=== PATIENT | male | born 1985 | race Caucasian/White ===

== ENCOUNTER 2019-07-09 20:14 | Emergency (ER) | payer SELFPAY ==
[~2019-07-09] VITALS: Ht 172.7 cm; Wt 68.0 kg
[2019-07-09 20:16] VITALS: BP 146/102
[2019-07-09] MEDS ORDERED: TDAP [DIPH/PERTUSSIS/TET] 0.5 ML VIAL IM ONE ×2 (20:56→21:00)
== END 2019-07-09 21:03 | disposition home or self-care (01) ==
LOC: ER 20:17
DX: S61.011A Laceration without foreign body of right thumb without damage to nail, initial encounter (principal); S61.210A Laceration without foreign body of right index finger without damage to nail, initial encounter; W26.8XXA Contact with other sharp object(s), not elsewhere classified, initial encounter; Y93.89 Activity, other specified; Y92.89 Other specified places as the place of occurrence of the external cause; Y99.8 Other external cause status
CPT/HCPCS: 90715

== ENCOUNTER 2019-07-10 08:52 | Emergency (ER) | payer MEDICAID ==
[~2019-07-10] VITALS: Ht 172.7 cm; Wt 68.0 kg
[2019-07-10 08:59] VITALS: BP 139/77
--- NOTE | 2019-07-10 09:50 | NUR ---
Patient discharged to home in stable condition. Written and verbal after care instructions given. Patient verbalizes understanding of instruction.
== END 2019-07-10 09:50 | disposition home or self-care (01) ==
LOC: ER 08:56
DX: S61.011D Laceration without foreign body of right thumb without damage to nail, subsequent encounter (principal); Z60.2 Problems related to living alone; X58.XXXD Exposure to other specified factors, subsequent encounter

== ENCOUNTER 2025-07-24 16:50 | Inpatient (IN) | payer MEDICAID, OTHER ==
[~2025-07-24] VITALS: Ht 172.7 cm; Wt 74.8 kg
[2025-07-24] MEDS ORDERED: LORAZEPAM INJ 2 MG/ML VIAL ONE ×2 (17:07→18:38)
[2025-07-24] MEDS: LORAZEPAM INJ 2 MG/ML VIAL IV ONE ×2 (17:12→18:30)
[2025-07-24] MEDS: IV NS 0.9% 1,000 ML BAG IV ONE (17:12)
[2025-07-24 17:31] LABS: PLATELET COUNT (AUTO) 187 K/uL (150-450); RED BLOOD CELL COUNT(AUTO) 4.78 MIL/uL (4.5-6.0); RED CELL DISTRIBUTION WIDTH 13.5 % (11.5-15.0); WHITE BLOOD COUNT (AUTO) 5.5 K/uL (4.3-11.0)
[2025-07-24 17:35] LABS: CALCIUM, SERUM 8.7 mg/dL (8.5-10.1); CREATININE 1.0 mg/dL (0.6-1.3); SODIUM SERUM 139 mmol/L (136-145); UREA NITROGEN, BLOOD 6 mg/dL (7-18)
[2025-07-24 17:37] LABS: ASPARTATE AMINOTRANSFERASE 64 U/L (15-37); TOTAL PROTEIN, SERUM 8.6 g/dL (6.4-8.2)
[2025-07-24 17:48] LABS: ALCOHOL, BLOOD 115.0 mg/dL (0-10)
[2025-07-24 18:30] VITALS: O2SAT 98
[2025-07-24 20:30] VITALS: BP 150/100; TEMP 98.1; O2SAT 98
[2025-07-24] MEDS ORDERED: MAG HYDROX/AL HYDROX/SIMETH 30 ML UDC PO PRN (20:30)
[2025-07-24] MEDS ORDERED: ONDANSETRON HCL/PF 4 MG/2 ML VIAL IVP PRN (20:30)
[2025-07-24] MEDS ORDERED: ACETAMINOPHEN 325 MG TABLET PO PRN (20:30)
[2025-07-24] MEDS ORDERED: Z GUARD REMEDY 4 OZ OINT TP PRN (20:30)
[2025-07-24] MEDS ORDERED: MAGNESIUM HYDROXIDE 30 ML UDC PO PRN (20:30)
[2025-07-24 20:32] VITALS: BP 150/100; TEMP 98.1
[2025-07-24 20:44] LABS: AMPHETAMINE, URINE NEGATIVE (NEGATIVE); BARBITURATE, URINE NEGATIVE (NEGATIVE); BENZODIAZEPINE, URINE NEGATIVE (NEGATIVE); CANNABINOID, URINE NEGATIVE (NEGATIVE); COCCAINE, URINE NEGATIVE (NEGATIVE); OPIATE, URINE NEGATIVE (NEGATIVE)
[2025-07-24] MEDS: IV NS 0.9% 1,000 ML IV PRN (21:04)
[2025-07-24 21:15] VITALS: BP 140/91
[2025-07-25] VITALS: BP 152/99; TEMP 97.5; O2SAT 98
[2025-07-25] MEDS: Thiamine 100 MG in IV D5W 50 ML IV SCH (00:18)
[2025-07-25 00:23] VITALS: BP 152/99; TEMP 97.5
[2025-07-25 04:00] VITALS: BP 146/94; TEMP 98.4; O2SAT 96
[2025-07-25 07:00] VITALS: BP 161/95; TEMP 97.9; O2SAT 96
[2025-07-25 07:36] LABS: PLATELET COUNT (AUTO) 143 K/uL (150-450); RED BLOOD CELL COUNT(AUTO) 4.33 MIL/uL (4.5-6.0); RED CELL DISTRIBUTION WIDTH 13.3 % (11.5-15.0); WHITE BLOOD COUNT (AUTO) 3.2 K/uL (4.3-11.0)
[2025-07-25] MEDS: PANTOPRAZOLE 40 MG VIAL IV SCH (09:39)
[2025-07-25] MEDS: LORAZEPAM INJ 2 MG/ML VIAL IV PRN (10:51)
[2025-07-25 11:00] VITALS: BP 157/97; TEMP 98.2; O2SAT 99
[2025-07-25 11:04] LABS: CALCIUM, SERUM 8.0 mg/dL (8.5-10.1); CREATININE 0.7 mg/dL (0.6-1.3); PHOSPHORUS 3.0 mg/dL (2.5-4.9); SODIUM SERUM 139.0 mmol/L (136-145); UREA NITROGEN, BLOOD 6.0 mg/dL (7-18)
[2025-07-25 15:00] VITALS: BP 154/95; TEMP 98.6; O2SAT 97
== END 2025-07-25 20:30 | disposition home or self-care (01) | DRG 282 ==
LOC: ER 17:00 → TELE 19:01
PROVIDERS: ADMIT Nurse Practitioner Acute Care; ATTEND Nurse Practitioner Acute Care
DX: K85.90 Acute pancreatitis without necrosis or infection, unspecified (principal); E87.20 Acidosis, unspecified; F10.229 Alcohol dependence with intoxication, unspecified; Y90.5 Blood alcohol level of 100-119 mg/100 ml; R00.0 Tachycardia, unspecified; F10.239 Alcohol dependence with withdrawal, unspecified; R11.2 Nausea with vomiting, unspecified
CPT/HCPCS: 36415; 71045-TC; 80048-TC; 80076-TC; 83690-TC; 83735-TC; 84100-TC; 84484-TC; 85025-TC; A4223; G0378; G0480; J2060; J2470; J3411; J7030; J7060